=== PATIENT | male | born 1980 | race Caucasian/White ===

== ENCOUNTER 2017-05-18 14:44 | Inpatient (IN) | payer OTHER ==
[~2017-05-18] VITALS: Ht 175.3 cm; Wt 90.7 kg
[2017-05-18 16:55] VITALS: BP 127/87; PULSE 81; RESP 16
[2017-05-18 17:31] VITALS: Ht 175.3 cm; Wt 90.7 kg
--- NOTE | 2017-05-18 17:49 | HP ---
Date/Time of Note Date/Time of Note DATE: 05/18/17 TIME: 17:40 Assessment/Plan VTE Prophylaxis VTE Prophylaxis Intervention: SCD's Lines/Catheters IV Catheter Type (from Nrsg): Saline Lock Assessment/Plan Assessment/Plan 36 yo M with remote hx appy here with SBO -gen surg consult -cont NG -IVFs and lyte repletion -NPO DVT prophx HPI/ROS Admit Date/Time Admit Date/Time May 18, 2017 at 16:40 Hx of Present Illness CC transferred from OSH for SBO for insurance reasons HPI 36 yo M with no known chronic medical problems presented to [facility] with abd pain, CT revealed SBO. NG placed and pt transferred here for insurance purposes. Pt sleeping and unable to contribute to PMHx/PSHx/SocHx/FamHx/Meds/All/ROS at time of my attempted evaluation past surg hx: appy PMH/Family/Social Social History Smoking Status: Never smoker Exam/Review of Systems Vital Signs Vitals Vital Signs Date Time Temp Pulse Resp B/P Pulse Ox O2 Delivery O2 Flow Rate FiO2 05/18/17 16:55 98.2 81 16 127/87 98 Room Air Exam Exam nad, sleeping NG tube in place, pale fluid in collection system no gross thyromeg lungs clear no mrg abd with bowel sounds no rashes no edema OSH labs 9.4>16.8/48.7<273 Na 135, K 3.5, Cl 101, CO2 26, BUN 14, Cr 1.1. gluc 118 TB 1.9, AST 21, ALT [address]: SBO with transion point in R abdomen, +wall thickening of distal small bowel, cannot r/o enteritis. No fluid collection Medications Medications Current Medications Sodium Chloride (NS) 1,000 ml @ 125 mls/hr Q8H IV ; Start 05/18/17 at 17:35 Ondansetron HCl (Zofran Tab) 4 mg Q6H PRN PO NAUSEA AND/OR VOMITING; Start 05/18/17 at 18:00 Acetaminophen (Tylenol Tab) 650 mg Q6H PRN PO PAIN LEVEL 1-3 OR FEVER; Start 05/18/17 at 18:00 Morphine Sulfate (morphine) 2 mg Q4H PRN IV SEVERE PAIN LEVEL 7-10; Start 05/18 at 18:00 Enoxaparin Sodium (Lovenox) 40 mg DAILY SC ; Start 05/19/17 at 09:00; Status UNV KIERSTEN DIGGS MD May 18, 2017 17:49
[2017-05-18] MEDS ORDERED: morphine 2 MG INJ IV PRN (18:00)
[2017-05-18] MEDS ORDERED: NACL 0.9% 3 ML SYG IV SCH (18:00)
[2017-05-18] MEDS ORDERED: ACETAMINOPHEN 325 MG TAB PO PRN (18:00)
[2017-05-18] MEDS ORDERED: ONDANSETRON 4 MG TAB PO PRN (18:00)
[2017-05-18] MEDS: SOD CHLORIDE 0.9% 1,000 ML IV SCH (18:30)
[2017-05-18 20:55] VITALS: BP 137/85; RESP 19
[2017-05-19] MEDS: SOD CHLORIDE 0.9% 1,000 ML IV SCH ×2 (01:58→09:27)
[2017-05-19 02:00] VITALS: BP 131/87; RESP 19
[2017-05-19 05:54] LABS: CALCIUM 8.7 mg/dl (8.4-10.2); CREATININE 1.02 mg/dl (0.61-1.24); MAGNESIUM 1.8 mg/dl (1.7-2.5); POTASSIUM 3.9 mmol/L (3.5-5.1)
[2017-05-19 08:00] VITALS: BP 130/83; RESP 18
[2017-05-19] MEDS: ENOXAPARIN 40 MG/0.4 ML SYG SC SCH ×2 (09:00→09:20)
[2017-05-19 14:00] VITALS: BP_SYST 138; BP_SYST 139; BP_DIAS 65; BP_DIAS 86; RESP 18
--- NOTE | 2017-05-19 15:22 | PDOCDIS ---
Discharge Instructions CONDITION Patient Condition: Good FOLLOW UP/APPOINTMENTS Follow-up Plan Please discuss your recent small bowel obstruction with your regular doctor within 1 week KIERSTEN DIGGS MD May 19, 2017 15:22
--- NOTE | 2017-05-19 15:26 | DS ---
Date/Time of Note Date/Time of Note DATE: 05/19/17 TIME: 15:22 Discharge Summary Admission/Discharge Info Admit Date/Time May 18, 2017 at 16:40 Discharge Date/Time Discharge Diagnosis small bowel obstruction Patient Condition: Good Consults none Procedures none here. OSH CT with SBO Hx of Present Illness CC transferred from OSH for SBO for insurance reasons HPI 36 yo M with no known chronic medical problems presented to [facility] with abd pain, CT revealed SBO. NG placed and pt transferred here for insurance purposes. Pt sleeping and unable to contribute to PMHx/PSHx/SocHx/FamHx/Meds/All/ROS at time of my attempted evaluation past surg hx: appy Hospital Course Pt transferred with NG to LIS already in place. Pt kept NPO overnight. By the next morning pt reported flatus, requested NG removal. NG removed. Pt tolerated PO without issue and requested discharge home. Pt discharged. Follow-up Plan Please discuss your recent small bowel obstruction with your regular doctor within 1 week Primary Care Provider Care Physician No Primary Time spent on discharge: > 30 minutes Pending Labs Laboratory Tests Test 05/19/17 04:39 Sodium Level 141mmol/L (135-144) Potassium Level 3.9mmol/L (3.5-5.1) Chloride Level 103mmol/L (97-110) Carbon Dioxide Level 31mmol/L (21-31) Anion Gap 11 (8-16) Blood Urea Nitrogen 15mg/dl (7-20) Creatinine 1.02mg/dl (0.61-1.24) Glucose Level 86mg/dl (70-220) Calcium Level 8.7mg/dl (8.4-10.2) Phosphorus Level 3.7mg/dl (2.5-4.9) Magnesium Level 1.8mg/dl (1.7-2.5) KIERSTEN DIGGS MD May 19, 2017 15:26
== END 2017-05-19 17:55 | disposition home or self-care (01) | DRG 390 ==
LOC: MS1 16:40
PROVIDERS: ADMIT Internal Medicine; ATTEND Internal Medicine
DX: K56.699 Other intestinal obstruction unspecified as to partial versus complete obstruction (principal)
CPT/HCPCS: 80048; 83735; 84100; J1650; J2270; J7030